=== PATIENT | male | born 1955 | race Caucasian/White ===

== ENCOUNTER 2019-03-17 06:45 | Emergency (ER) | payer BC ==
[2019-03-17] MEDS ORDERED: Tamsulosin 0.4 MG Cap.ER PO ONE (06:53)
[2019-03-17] MEDS ORDERED: Ketorolac 60 MG/2 ML SDV IM ONE (06:53)
--- NOTE | 2019-03-17 07:39 | EDM.PDOC ---
ED HPI GENERAL MEDICAL PROBLEM - General Stated Complaint: KIDNEY STONE Time Seen by Provider: 03/17/19 06:53 Source of Information: Reports: Patient, Family History Limitations: Reports: No Limitations - History of Present Illness INITIAL COMMENTS - FREE TEXT/NARRATIVE: 63 y.o.w.m with a h/o urolithiasis, came to the ed with his due to acute left lower abd. pain as he got up this morning. No trauma. Pt felt nauseated. No other acute med issues. BP 159/82 RR 15 Pulse ox 100% on RA Temp 36.7 Pulse 76 Onset Date: 03/17/19 Onset Time: 06:30 Duration: Hour(s):, Intermittent, Waxing/Waning Location: Reports: Abdomen, Back Quality: Reports: Ache, Dull, Same as Previous Episode Severity: Moderate Improves with: Reports: Medication Worsens with: Reports: Movement Context: Reports: Other Associated Symptoms: Reports: Other (nauseated. ) left flank Pain Score (Numeric/FACES): 9 - Related Data Allergies Allergy/AdvReac Type Severity Reaction Status Date / Time No Known Allergies Allergy Verified 03/17/19 07:21 Home Meds: Home Meds Acetaminophen/oxyCODONE [Percocet 325-5 MG] 1 each PO Q6HR PRN #20 tab 03/17/19 [Rx] Tamsulosin [Tamsulosin 24 Hr] 0.4 mg PO DAILY #5 cap.er 03/17/19 [Rx] ED ROS GENERAL - Review of Systems Review Of Systems: See Below Constitutional: Reports: No Symptoms HEENT: Reports: No Symptoms Respiratory: Reports: No Symptoms Cardiovascular: Reports: No Symptoms Endocrine: Reports: No Symptoms GI/Abdominal: Reports: No Symptoms : Reports: Flank Pain Musculoskeletal: Reports: No Symptoms Skin: Reports: No Symptoms Neurological: Reports: No Symptoms Psychiatric: Reports: No Symptoms Hematologic/Lymphatic: Reports: No Symptoms Immunologic: Reports: No Symptoms ED EXAM, RENAL/ - Physical Exam Exam: See Below Exam Limited By: No Limitations General Appearance: Alert, WD/WN, Moderate Distress Eye Exam: Bilateral Eye: Normal Inspection Ears: Normal External Exam Nose: Normal Inspection, Normal Mucosa Throat/Mouth: Normal Inspection, Normal Lips, Normal Voice, No Airway Compromise Head: Atraumatic, Normocephalic Neck: Normal Inspection, Supple, Non-Tender, Full Range of Motion Respiratory/Chest: No Respiratory Distress, Lungs Clear, Normal Breath Sounds Cardiovascular: Normal Peripheral Pulses, Regular Rate, Rhythm GI/Abdominal: Normal Bowel Sounds, No Organomegaly, No Distention (Male) Exam: No Hernia Rectal (Males) Exam: Deferred Back Exam: Normal Inspection, Full Range of Motion, CVA Tenderness (L) Extremities: Normal Inspection, Normal Range of Motion, Non-Tender Neurological: Alert, Oriented, CN II-XII Intact, Normal Cognition, Normal Gait Psychiatric: Normal Affect, Normal Mood Skin Exam: Warm, Dry, Intact, Normal Color, No Rash Lymphatic: No Adenopathy Course - Vital Signs Text/Narrative:: 63 y.o.w.m with a h/o urolithiasis, came to the ed with his due to acute left lower abd. pain as he got up this morning. Pt felt nauseated. No other acute med issues. BP 159/82 RR 15 Pulse ox 100% on RA Temp 36.7 Pulse 76 PE: WNWD w m with left flank pain radiating to his left groin. Imaging: CT abd/pelvis: 4 mm stone at left UVJ with mild Hydronephrosis Labs: WBC 9.6 HGB 13.3 BUN 19 C. 1.1 GFR > 60 UA pos for hematuria Impression:CT abd/pelvis: 4 mm stone at left UVJ with mild Hydronephrosis. Hematuria Tx: Flomax, Toradol. Reexam: Improved 70% Plan: D/C with instructions Last Recorded V/S: Last Vital Signs Temp 36.3 C 03/17/19 07:32 Pulse 51 L 03/17/19 08:00 Resp 18 03/17/19 08:00 BP 142/78 H 03/17/19 08:00 Pulse Ox 100 03/17/19 08:00 - Orders/Labs/Meds Orders: Active Orders 24 hr Category Date Time Status Abdomen Pelvis wo Cont [CT] Stat Exams 03/17/19 06:53 Taken Labs: Laboratory Tests 03/17/19 03/17/19 03/17/19 Range/Units 07:05 07:05 07:43 WBC 9.5 (4.5-12.0) X10-3/uL RBC 4.53 (4.30-5.75) x10(6)uL Hgb 13.3 L (13.5-17.8) g/dL Hct 39.6 (30.0-51.3) % MCV 87.5 (80-96) fL MCH 29.3 (27.7-33.6) pg MCHC 33.5 (32.2-35.4) g/dL RDW 13.7 (11.5-15.5) % Plt Count 278 (125-369) X10(3)uL MPV 7.3 L (7.4-10.4) fL Neut % (Auto) 41.9 L (46-82) % Lymph % (Auto) 39.3 H (13-37) % [place] % (Auto) 12.8 H (4-12) % Eos % (Auto) 6 H (1.0-5.0) % Baso % (Auto) 0 (0-2) % Neut # (Auto) 4.1 (1.6-8.3) # Lymph # (Auto) 3.7 (0.6-5.0) # [place] # (Auto) 1.2 (0.0-1.3) # Eos # (Auto) 0.5 (0.0-0.8) # Baso # (Auto) 0.0 (0.0-0.2) # Sodium 141 (135-145) mmol/L Potassium 3.8 (3.5-5.3) mmol/L Chloride 106 (100-110) mmol/L Carbon Dioxide 25 (21-32) mmol/L BUN 19 H (7-18) mg/dL Creatinine 1.1 (0.70-1.30) mg/dL Est Cr Clr Drug Dosing TNP Estimated GFR (MDRD) > 60 (>60) BUN/Creatinine Ratio 17.3 (9-20) Glucose 120 H (80-116) mg/dL Calcium 8.7 (8.6-10.2) mg/dL Urine Color Yellow (YELLOW) Urine Appearance Clear (CLEAR) Urine pH 5.0 (5.0-6.5) Ur Specific [place] 1.020 (1.010-1.025) Urine Protein Negative (NEGATIVE) mg/dL Urine Glucose (UA) Normal (NORMAL) mg/dL Urine Ketones Negative (NEGATIVE) mg/dL Urine Occult Blood Negative (NEGATIVE) Urine Nitrite Negative (NEGATIVE) Urine Bilirubin Negative (NEGATIVE) Urine Urobilinogen Normal (NEGATIVE) mg/dL Ur Leukocyte Esterase Negative (NEGATIVE) Urine RBC 5-10 H (0-5) Urine WBC 0-5 (0-5) Ur Squamous Epith Cells Few H (NS,R,O) Urine Bacteria Few H (NS) Meds: Medications Discontinued Medications Generic Name Dose Route Start Last Admin Trade Name Freq PRN Reason Stop Dose Admin Ketorolac Tromethamine 60 mg 03/17/19 06:53 03/17/19 07:22 Toradol IM 03/17/19 06:54 60 mg ONETIME ONE Administration Tamsulosin HCl 0.4 mg 03/17/19 06:53 03/17/19 07:24 Flomax PO 03/17/19 06:54 0.4 mg ONETIME ONE Administration Departure - Departure Time of Disposition: 07:50 Disposition: Home, Self-Care 01 Condition: Good Clinical Impression: Urolithiasis Qualifiers: Urinary calculus location: lower urinary tract Qualified Code(s): N21.9 - Calculus of lower urinary tract, unspecified - Discharge Information Prescriptions: Acetaminophen/oxyCODONE [Percocet 325-5 MG] 1 each PO Q6HR PRN #20 tab PRN Reason: for severe pain only Tamsulosin [Tamsulosin 24 Hr] 0.4 mg PO DAILY #5 cap.er Instructions: Kidney Stones Referrals: PCP,Not In Area [Primary Care Provider] - Forms: ED Department Discharge Additional Instructions: Please take Motrin for mod pain, Flomax daily, Percocet for severe pain only. please f/u, come back if your symptoms get worse acutely - My Orders Last 24 Hours: My Active Orders 03/17/19 06:53 Abdomen Pelvis wo Cont [CT] Stat - Assessment/Plan Last 24 Hours: My Active Orders 03/17/19 06:53 Abdomen Pelvis wo Cont [CT] Stat
== END 2019-03-17 08:08 | disposition home or self-care (01) ==
LOC: FB.ED 06:45
DX: N13.2 Hydronephrosis with renal and ureteral calculous obstruction (principal)
CPT/HCPCS: 36415; 74176; 80048; 81001; 85025; 96372; 99284-25; A9270-GY; J1885